=== PATIENT | male | born 1985 | race Caucasian/White ===

== ENCOUNTER 2018-11-03 18:37 | Emergency (ER) | payer SELFPAY ==
[~2018-11-03] VITALS: Ht 182.9 cm; Wt 113.6 kg
[2018-11-03] MEDS ORDERED: IBUP-1506 PO (18:49)
[2018-11-03] MEDS ORDERED: KETOROLAC TROMETHAMINE 30 MG/ML VIAL IM ONE (19:45)
[2018-11-03] MEDS ORDERED: DEXAMETHASONE SOD PHOS 4 MG/ML 5 ML VIAL IM ONE (19:45)
[2018-11-03] MEDS ORDERED: AMOX TR/POT CLAV 875 MG/125 MG TABLET PO ONE (20:30)
[2018-11-03 21:34] VITALS: BP 115/76
== END 2018-11-03 22:02 | disposition home or self-care (01) ==
LOC: EMS 18:38
DX: J02.0 Streptococcal pharyngitis (principal); F17.210 Nicotine dependence, cigarettes, uncomplicated
CPT/HCPCS: 87430; 96372; 99283; J1100; J1885